=== PATIENT | male | born 1955 | race Caucasian/White ===

== ENCOUNTER 2019-12-18 05:22 | Outpatient (CLI) | payer MEDICARE, OTHER | END 2019-12-18 05:23 | disposition critical access hospital (66) | LOC: EMS 05:22 | PROVIDERS: ATTEND Surgery | DX: R06.02 Shortness of breath (principal) | CPT/HCPCS: A0425; A0427 ==

== ENCOUNTER 2019-12-18 05:39 | Emergency (ER) | payer MEDICARE, OTHER ==
[2019-12-18] MEDS ORDERED: NITROGLYCERIN 2% PASTE TOP STA (05:45)
--- NOTE | 2019-12-18 05:46 | ED Physician Documentation ---
PD HPI DYSPNEA - Stated complaint Stated Complaint: SOA - Chief complaint Chief Complaint: Resp - History obtained from History obtained from: Patient, EMS - History of Present Illness Timing - onset: Enter time (04:30), Today Timing - onset during: Rest Timing - details: Gradual onset Pain level now: 0 Improved by: O2, Inhaler/neb Associated symptoms: Bilateral edema (R>L (chronic, per patient)). No: Fever, Cough, Wheezing, Chest pain / discomfort, Palpitations, Diaphoresis Recently seen: Not recently seen - Additional information Additional information: BIBA for severe dyspnea. Patient was at his scheduled HD appointment in [place] but before HD could be started, staff called 911 due to the severity of his dyspnea. Medics arrived to find patient hypoxic with oxygen saturation of 76% RA, tripoding, diaphoretic, and severely dyspneic. Given duoneb en route with NRB and his pulse ox gradually improved to 96% by the time of ED arrival with improvement in symptoms. He continues to exhibit significant dyspnea on ED arrival. Patient is oxygen dependent at home, uses 2 liters (sometimes 3) with CPAP at night. Review of Systems Constitutional: denies: Fever, Chills, Sweats Nose: reports: Congestion Cardiac: reports: Pedal edema. denies: Chest pain / pressure, Palpitations Respiratory: reports: Dyspnea. denies: Cough, Hemoptysis, Wheezing GI: reports: Reviewed and negative Skin: reports: Reviewed and negative Musculoskeletal: reports: Reviewed and negative Neurologic: reports: Headache (mild generalized) PD PAST MEDICAL HISTORY - Past Medical History Past Medical History: Yes Respiratory: COPD Endocrine/Autoimmune: Type 1 diabetes GI: Pancreatitis (h/o pancreatitis with pseudocyst requiring surgery) : Dialysis - Present Medications Home Medications: Ambulatory Orders Medication Instructions Recorded Confirmed Albuterol Sulfate [Proair Hfa 1 puffs IH BID 12/18/19 12/18/19 Inhaler] Amlodipine Besylate 10 mg PO DAILY 12/18/19 12/18/19 Azelastine HCl 1 spray IN BID 12/18/19 12/18/19 B Comp No3/Folic/C/Biotin/Zinc 1 tab ORAL DAILY 12/18/19 12/18/19 [Nephplex Rx Tablet] Cranberry Fruit Extract [Cranberry] 600 mg ORAL DAILY 12/18/19 12/18/19 Duloxetine HCl 60 mg PO DAILY 12/18/19 12/18/19 Emollient Combination No.114 1 applic TOP BID 12/18/19 12/18/19 [Eucerin Advanced Repair] Ezetimibe 10 mg ORAL DAILY 12/18/19 12/18/19 Fluticasone [Flonase] 1 sprays QING BID 12/18/19 12/18/19 Gemfibrozil [Lopid] 600 mg ORAL DAILY 12/18/19 12/18/19 Insulin Regular, Human [Humulin R 75 - 125 units SQ TIDWM 12/18/19 12/18/19 U-500 Kwikpen] Lactobacillus Acidophilus 1 tab ORAL BID 12/18/19 12/18/19 [Probiotic Acidophilus] Loratadine [Claritin] 5 mg PO BID 12/18/19 12/18/19 Magnesium Oxide [Mag Ox] 420 mg ORAL BID 12/18/19 12/18/19 Multivitamin [Multiple Vitamins] 1 tab ORAL DAILY 12/18/19 12/18/19 - Allergies Allergies/Adverse Reactions: Allergies Allergy/AdvReac Type Severity Reaction Status Date / Time morphine AdvReac Nausea Verified 12/18/19 05:46 PD ED PE NORMAL - Vitals Vital signs reviewed: Yes - General General: Alert and oriented X 3, Other (mild/moderate respiratory distress ) - HEENT HEENT: Moist mucous membranes - Neck Neck: Supple, no meningeal sign - Cardiac Cardiac: RRR, No murmur - Abdomen Abdomen: Soft, Non tender - Derm Derm: Normal color, Warm and dry PD ED PE EXPANDED - Respiratory Respiratory: Distress, Labored, Accessory mm use, Wheezing, Rales - Abdomen Abdomen: Surgical scars (old, mildline epigstric surgical scar) - Extremities Extremities: Pedal edema bilateral (R>L (chronic discrepency, per patient)) Results - Vitals Vitals: Vital Signs - 24 hr 12/18/19 12/18/19 12/18/19 05:52 06:00 06:30 Temperature 37.2 C Heart Rate 71 70 61 Respiratory 26 H 13 Rate Blood Pressure 157/63 H 149/111 H O2 Saturation 100 100 12/18/19 12/18/19 12/18/19 06:35 07:15 07:37 Temperature 36.9 C Heart Rate 62 61 Respiratory 24 Rate Blood Pressure 149/111 H 132/65 H O2 Saturation 99 76 L 100 12/18/19 12/18/19 12/18/19 08:08 08:36 09:08 Temperature Heart Rate 56 L 56 L 55 L Respiratory 20 20 23 Rate Blood Pressure 146/50 H 135/58 H 137/52 H O2 Saturation 100 100 98 Oxygen O2 Source BIPAP - EKG (time done) No standard instances Rate: Rate (enter#) (67) Rhythm: NSR [place]: LAD QRS: LVH Ischemia: Normal ST segments, T wave inversion (I, aVL) - Labs Labs: Laboratory Tests 12/18/19 12/18/19 12/18/19 05:55 05:55 05:55 WBC 16.0 H RBC 3.50 L Hgb 11.1 L Hct 34.8 L MCV 99.4 H MCH 31.7 H MCHC 31.9 L RDW 15.7 H Plt Count 373 MPV 9.8 Neut # (Auto) 12.4 H Lymph # (Auto) 1.5 Nelson # (Auto) 0.9 Eos # (Auto) 0.6 Baso # (Auto) 0.2 H Absolute Nucleated RBC 0.00 Nucleated RBC % 0.0 PT 12.3 INR 1.1 APTT 38.3 H Sodium 135 Potassium 5.3 H Chloride 101 Carbon Dioxide 18 L Anion Gap 16.0 H BUN 60 H Creatinine 4.7 H Estimated GFR (MDRD) 13 L Glucose 377 H Calcium 8.9 Total Bilirubin 0.9 AST 21 ALT 18 Alkaline Phosphatase 81 Troponin I High Sens B-Natriuretic Peptide Total Protein 7.5 Albumin 4.2 Globulin 3.3 Albumin/Globulin Ratio 1.3 Lipase 38 12/18/19 12/18/19 05:55 05:55 WBC RBC Hgb Hct MCV MCH MCHC RDW Plt Count MPV Neut # (Auto) Lymph # (Auto) Nelson # (Auto) Eos # (Auto) Baso # (Auto) Absolute Nucleated RBC Nucleated RBC % PT INR APTT Sodium Potassium Chloride Carbon Dioxide Anion Gap BUN Creatinine Estimated GFR (MDRD) Glucose Calcium Total Bilirubin AST ALT Alkaline Phosphatase Troponin I High Sens 65.4 H* B-Natriuretic Peptide 643 H Total Protein Albumin Globulin Albumin/Globulin Ratio Lipase - Rads (name of study) chest xray Radiology: Prelim report reviewed, See rad report PD MEDICAL DECISION MAKING - ED course Complexity details: reviewed results, re-evaluated patient, considered differential, d/w patient ED course: patient improved significantly after placement of bipap in ED and 1" NTP to ACW. However, for remainder of ED stay, he was noted to desaturate rapidly when bipap removed (for example, when given PO tylenol for MAYER or when he removed bipap briefly to make a phone call), with pulse ox dropping rapidly to upper 70s; this would again rapidly correct when bipap replaced. D/W Dr. Valdez (covering for Dr. Rdz), agrees patient would be appropriate for transfer to [facility] to hospitalist service. D/W Dr. Nelson (guard entrance registrar at [place]), accepts transfer. Departure - Departure Disposition: 02 Transfer Acute Care Hosp Clinical Impression: Dyspnea, Pulmonary edema Condition: Stable
[2019-12-18 06:03] LABS: BASOPHILS # (AUTO) 0.2 10^3/uL (0.0-0.1); BASOPHILS % (AUTO) 1.3 %; EOSINOPHILS # (AUTO) 0.6 10^3/uL (0.0-0.7); EOSINOPHILS % (AUTO) 3.5 %; HGB - HEMOGLOBIN 11.1 g/dL (14.0-18.0); LYMPHOCYTES # (AUTO) 1.5 10^3/uL (1.5-3.5); LYMPHOCYTES % (AUTO) 9.4 %; MEAN CORPUSCULAR HEMOGLOBIN 31.7 pg (27.0-31.0); MEAN CORPUSCULAR HGB CONC 31.9 g/dL (32.0-36.0); MEAN CORPUSCULAR VOLUME 99.4 fL (80.0-94.0); MEAN PLATELET VOLUME 9.8 fL (7.4-11.4); MONOCYTES # (AUTO) 0.9 10^3/uL (0.0-1.0); MONOCYTES % (AUTO) 5.4 %; NEUTROPHILS # (AUTO) 12.4 10^3/uL (1.5-6.6); NEUTROPHILS % (AUTO) 77.9 %; PLT - PLATELET COUNT 373 10^3/uL (130-450); RED CELL DISTRIBUTION WIDTH 15.7 % (12.0-15.0)
[2019-12-18 06:14] LABS: INR 1.1 (0.8-1.2); PT - PROTHROMBIN TIME 12.3 secs (9.9-12.6)
[2019-12-18 06:15] LABS: ALBUMIN 4.2 g/dL (3.2-5.5); ALBUMIN/GLOBULIN RATIO 1.3 (1.0-2.2); BILIRUBIN,TOTAL 0.9 mg/dL (0.2-1.0); CALCIUM 8.9 mg/dL (8.5-10.3); CREATININE 4.7 mg/dL (0.6-1.2); TOTAL PROTEIN 7.5 g/dL (6.7-8.2)
[2019-12-18 06:21] LABS: PARTIAL THROMBOPLASTIN TIME 38.3 secs (24.9-33.3)
[2019-12-18] MEDS ORDERED: LORazepam 0.5 MG TABLET PO STA (07:31)
[2019-12-18] MEDS ORDERED: ACETAMINOPHEN 325 MG TABLET PO STA (07:31)
[2019-12-18] MEDS ORDERED: FUROSEMIDE 100 MG/10 ML VIAL IVP STA (09:01)
--- NOTE | 2019-12-18 09:03 | ED Physician Documentation ---
ED Addendum - Addendum Addendum: 12/18/19 09:01 64-year-old male dialysis patient arrives to the emergency department with congestive heart failure acutely today and is in need of dialysis. At shift change arrangements have been made for transfer the patient to [facility] and care of the patient is turned over to me. The patient is dyspneic and on BiPAP and feeling improved. I have examined the patient with the bedside ultrasound and find his inferior vena cava to be dilated to 3.07 cm. We have administered a dose of Lasix 80 mg intravenous while awaiting transport.
--- NOTE | 2019-12-18 09:14 | XRAY Report ---
PROCEDURE: Chest 1 View X-Ray INDICATIONS: dyspnea TECHNIQUE: One view of the chest was acquired. COMPARISON: None available FINDINGS: Surgical changes and devices: None. Lungs and pleura: No pleural effusions or pneumothorax. Demonstrated ill-defined alveolar opacity in the right infrahilar region superimposed on diffuse interstitial thickening. Mediastinum: Mediastinal contours appear normal. Heart size is mildly enlarged. Bones and chest wall: No suspicious bony lesions. Overlying soft tissues appear unremarkable. IMPRESSION: 1. Findings suggestive of central venous congestion and early right infrahilar pulmonary edema. Pneum onia may be present. 2. Mild cardiomegaly. 3. Concordant with preliminary report. Reviewed by: Luann Blake MD on 12/18/2019 9:13 AM PDT Approved by: Luann Blake MD on 12/18/2019 9:13 AM PDT Station ID: [id number]
[2019-12-18 11:07] VITALS: BP 134/65
== END 2019-12-18 11:48 | disposition short-term general hospital (02) ==
LOC: EDUNIT# → ED 05:39
DX: J81.1 Chronic pulmonary edema (principal); E10.8 Type 1 diabetes mellitus with unspecified complications; Z99.81 Dependence on supplemental oxygen; Z99.2 Dependence on renal dialysis; Z79.4 Long term (current) use of insulin
CPT/HCPCS: 36415; 71045; 80053; 83690; 83880; 84484; 85025; 85610; 85730; 93005; 94660; 96374; 99284; 99285; A9270; J1940

== ENCOUNTER 2022-02-22 16:08 | Outpatient (CLI) | payer MEDICARE, OTHER | END 2022-02-22 16:09 | disposition short-term general hospital (02) | LOC: EMS 16:08 | DX: S49.91XA Unspecified injury of right shoulder and upper arm, initial encounter (principal); W01.0XXA Fall on same level from slipping, tripping and stumbling without subsequent striking against object, initial encounter; Y92.008 Other place in unspecified non-institutional (private) residence as the place of occurrence of the external cause | CPT/HCPCS: A0425; A0427; A0888 ==

== ENCOUNTER 2022-02-23 08:36 | Outpatient (CLI) | payer MEDICARE, OTHER | END 2022-02-23 08:37 | disposition short-term general hospital (02) | LOC: EMS 08:36 | DX: R55 Syncope and collapse (principal); Z99.2 Dependence on renal dialysis | CPT/HCPCS: A0425; A0427 ==

== ENCOUNTER 2022-03-10 21:08 | Outpatient (CLI) | payer MEDICARE, OTHER | END 2022-03-10 23:59 | disposition short-term general hospital (02) | LOC: EMS 21:08 | DX: R55 Syncope and collapse (principal); R41.82 Altered mental status, unspecified; R53.83 Other fatigue; R42 Dizziness and giddiness; R09.89 Other specified symptoms and signs involving the circulatory and respiratory systems; Z99.2 Dependence on renal dialysis | CPT/HCPCS: A0425; A0429; A0888 ==

== ENCOUNTER 2022-04-16 01:16 | Outpatient (CLI) | payer MEDICARE, OTHER | END 2022-04-16 23:59 | disposition EMS.NT | LOC: EMS 01:16 | DX: Z03.89 Encounter for observation for other suspected diseases and conditions ruled out (principal) ==

== ENCOUNTER 2022-08-25 23:43 | Outpatient (CLI) | payer MEDICARE, OTHER | END 2022-08-25 23:44 | disposition EMS.NT | LOC: EMS 23:43 | DX: Z03.89 Encounter for observation for other suspected diseases and conditions ruled out (principal) ==

== ENCOUNTER 2022-10-22 07:38 | Outpatient (CLI) | payer MEDICARE, OTHER | END 2022-10-22 23:59 | disposition left against medical advice (07) | LOC: EMS 07:38 | DX: S51.812A Laceration without foreign body of left forearm, initial encounter (principal); W01.0XXA Fall on same level from slipping, tripping and stumbling without subsequent striking against object, initial encounter; Y92.009 Unspecified place in unspecified non-institutional (private) residence as the place of occurrence of the external cause; Z79.01 Long term (current) use of anticoagulants ==

== ENCOUNTER 2023-01-15 06:44 | Outpatient (CLI) | payer MEDICARE, OTHER | END 2023-01-15 06:45 | disposition critical access hospital (66) | LOC: EMS 06:44 | DX: R11.0 Nausea (principal); R42 Dizziness and giddiness; W05.0XXA Fall from non-moving wheelchair, initial encounter; Y92.000 Kitchen of unspecified non-institutional (private) residence as the place of occurrence of the external cause | CPT/HCPCS: A0425; A0429; A0888 ==

== ENCOUNTER 2023-03-16 16:50 | Outpatient (CLI) | payer MEDICARE, OTHER | END 2023-03-16 16:51 | disposition EMS.NT | LOC: EMS 16:50 | DX: Z03.89 Encounter for observation for other suspected diseases and conditions ruled out (principal) ==

== ENCOUNTER 2023-04-02 15:44 | Outpatient (CLI) | payer MEDICARE, OTHER | END 2023-04-02 15:45 | disposition EMS.NT | LOC: EMS 15:44 | DX: R07.1 Chest pain on breathing (principal); R07.81 Pleurodynia; R07.89 Other chest pain; S51.011A Laceration without foreign body of right elbow, initial encounter; W18.39XA Other fall on same level, initial encounter; Y92.019 Unspecified place in single-family (private) house as the place of occurrence of the external cause; Z99.2 Dependence on renal dialysis ==

== ENCOUNTER 2023-04-10 12:27 | Outpatient (CLI) | payer MEDICARE, OTHER | END 2023-04-10 23:59 | disposition EMS.NT | LOC: EMS 12:27 | DX: Z03.89 Encounter for observation for other suspected diseases and conditions ruled out (principal); Z79.01 Long term (current) use of anticoagulants ==

== ENCOUNTER 2023-04-11 16:48 | Outpatient (CLI) | payer MEDICARE, OTHER | END 2023-04-11 23:59 | disposition EMS.NT | LOC: EMS 16:48 | DX: Z03.89 Encounter for observation for other suspected diseases and conditions ruled out (principal) ==